=== PATIENT | male | born 1975 | race Caucasian/White ===

== ENCOUNTER 2016-12-17 10:19 | Emergency (ER) | payer BC ==
[~2016-12-17] VITALS: Ht 182.9 cm; Wt 79.5 kg
[2016-12-17 10:22] VITALS: BP 138/96; PULSE 97; TEMP 99
[2016-12-17] MEDS ORDERED: CIPRO 500MG TA500 MG PO (11:51)
== END 2016-12-17 11:59 | disposition home or self-care (01) ==
LOC: COL.ER 10:19
DX: S61.442A Puncture wound with foreign body of left hand, initial encounter (principal); Z23 Encounter for immunization